=== PATIENT | female | born 1990 | race Caucasian/White ===

== ENCOUNTER → 2017-04-12 12:05 | Outpatient (CLI) | payer SELFPAY ==
[2017-04-12 12:27] LABS: Absolute Lymphocyte Count 1.24 X10^3/ul (0.83-4.51); Absolute Neutrophil Count 5.2 X10^3/uL (2.0-7.7); Basophil# 0.02 X10^3/uL; Basophil% 0.3 % (0-1); Eosinophil# 0.02 X10^3/uL; Eosinophils% 0.3 % (0-5); Hematocrit 38.4 % (37-47); Hemoglobin 13.1 g/dl (12.0-15.0); Lymphocyte # 1.24 X10^3/ul (4.0); Lymphocyte % 18.2 % (19-41); Mean Corp Hgb Conc 34.1 g/gl (32-36); Mean Corpuscular Hgb 28.9 pg (27.0-32.0); Mean Corpuscular Volume 84.6 fL (81-99); Mean Platelet Vol. 9.7 fl (6.2-12.0); Monocyte# 0.36 X10^3/uL; Monocyte% 5.3 % (0-10); Neutrophil # 5.17 X10^3/uL (2.7-7.7); Neutrophil % 75.8 % (47-70); Platelet Count 240 K/mm3 (150-450); RBC Distribution Width CV 13.8 % (11.6-14.6); RBC Distribution Width SD 41.9 fl (35.1-43.9); Red Blood Count 4.54 M/mm3 (4.2-5.4); White Blood Count 6.8 K/mm3 (4.4-11.0)
[2017-04-12 12:33] LABS: Color, Urine Yellow (Yellow); Glucose, Dipstick Normal (Normal); Ketone-Dipstick Negative (Negative); Leukocyte Esterase-Dipstick Negative /ul (Negative); Nitrite-Dipstick Negative (Negative); Occult Blood-Urine 25 /ul (Negative); Protein-Dipstick Negative (Negative); Urine Bilirubin Dipstick Negative (Negative); Urine Clarity Clear (Clear); Urine Urobilinogen Normal (Normal)
[2017-04-12 12:34] LABS: POSITIVE COUNT NO; POSITIVE DIFFERENTIAL NO; POSITIVE MORPHOLOGY NO
[2017-04-12 13:33] LABS: Thyroid Stim Hormone (TSH) 1.21 uIU/mL (0.358-3.74)
[2017-04-12 16:16] LABS: Chlamydia Trachomatis by PCR Negative (Negative); Neisserai gonorrhoeae by PCR Negative (Negative); Probe Check PASS; Sample Adequacy Control PASS; Specimen Processing Control PASS
[2017-04-13 03:49] LABS: Prenatal RPR NONREACTIVE (NONREACTIVE)
[2017-04-13 07:22] LABS: HEPATITIS B SURFACE AG Negative (Negative); Hep C Antibodies <0.1 s/co ratio (0.0-0.9)
[2017-04-13 12:16] LABS: HIV - WCH Non-Reactive (Nonreactive); Rubella IgG 0.3 IU/mL
[2017-04-18 07:25] LABS: HPV Reflexed? NOT INDICATED
== END ==
PROVIDERS: Visit Provider Obstetrics & Gynecology
DX: Z12.4 Encounter for screening for malignant neoplasm of cervix (principal); Z34.81 Encounter for supervision of other normal pregnancy, first trimester; Z3A.00 Weeks of gestation of pregnancy not specified
CPT/HCPCS: 81002; 84443; 85025; 86703; 86762; 86803; 87340; 87491; 87591; 88175; G0145

== ENCOUNTER → 2017-08-16 09:34 | Outpatient (CLI) | payer SELFPAY ==
[2017-08-16 12:19] LABS: Hematocrit 34.4 % (37-47); Hemoglobin 11.6 g/dl (12.0-15.0); Mean Corp Hgb Conc 33.7 g/gl (32-36); Mean Corpuscular Hgb 29.9 pg (27.0-32.0); Mean Corpuscular Volume 88.7 fL (81-99); Mean Platelet Vol. 10.1 fl (6.2-12.0); Platelet Count 212 K/mm3 (150-450); RBC Distribution Width CV 13.2 % (11.6-14.6); Red Blood Count 3.88 M/mm3 (4.2-5.4); White Blood Count 6.5 K/mm3 (4.4-11.0)
[2017-08-16 12:30] LABS: Glucose Challenge Gest 1H 50g 87 mg/dL (70-140)
[2017-08-16 12:31] LABS: Scan Indicated on CBC? Y/N NO
== END ==
PROVIDERS: Visit Provider Obstetrics & Gynecology
DX: Z34.83 Encounter for supervision of other normal pregnancy, third trimester (principal)
CPT/HCPCS: 36415; 82950; 85027

== ENCOUNTER → 2017-10-03 15:41 | Outpatient (CLI) | payer SELFPAY ==
[2017-10-03 18:39] LABS: Group B Strep DNA By PCR Negative (Negative); Internal Control PASS; Probe Check PASS; Specimen Processing Control PASS
== END ==
PROVIDERS: Visit Provider Obstetrics & Gynecology
DX: Z36.85 Encounter for antenatal screening for Streptococcus B (principal)
CPT/HCPCS: 87081; 87653

== ENCOUNTER 2017-10-27 14:55 | Inpatient (IN) | payer SELFPAY ==
[2017-10-27] MEDS: Lactated Ringers 1,000 ML 50 ML IV (16:00)
[2017-10-27 16:14] LABS: Hematocrit 34.2 % (37-47); Hemoglobin 11.2 g/dl (12.0-15.0); Mean Corp Hgb Conc 32.7 g/gl (32-36); Mean Corpuscular Hgb 28.1 pg (27.0-32.0); Mean Corpuscular Volume 85.9 fL (81-99); Mean Platelet Vol. 9.9 fl (6.2-12.0); Platelet Count 234 K/mm3 (150-450); RBC Distribution Width CV 13.9 % (11.6-14.6); RBC Distribution Width SD 43.3 fl (35.1-43.9); Red Blood Count 3.98 M/mm3 (4.2-5.4); White Blood Count 6.6 K/mm3 (4.4-11.0)
[2017-10-27 16:19] LABS: Scan Indicated on CBC? Y/N NO
[2017-10-27 16:24] VITALS: BMI 23.6
[2017-10-27] MEDS: 0.9% Saline Lock 10 ML Syringe IV (18:46)
[2017-10-27] MEDS: Ondansetron 4 MG/2 ML Vial IV (20:36)
[2017-10-27] MEDS: Oxytocin 10 UNITS/ML Vial IM ×2 (21:18)
--- NOTE | 2017-10-27 21:32 | PCM.OB.VAG ---
Vaginal Delivery Maternal Presentation: Elective Induction Method of Induction: Pitocin, Amniotomy Amniotic Membrane Rupture Type: Artificial Amniotic Fluid Description: Clear Final ERIKA: 10/30/17 Final ERIKA Source: US <20 weeks Gestational age: 39 Weeks and 4 Days Date of Procedure: 10/27/17 Pre-Operative Diagnosis: IUP Post-Operative Diagnosis: IUP Surgery/ Procedure Performed: Spontaneous Vaginal Delivery Type of Anesthesia: None Description of Procedure: Spontaneous vaginal delivery of a viable male with Apgars of 9/10 from an occiput anterior presentation with clear amniotic fluid and normal three-vessel placenta. First-degree midline episiotomy with no laceration repaired with 3-0 Rapide suture. Sponge counts okay. Delivery physician: Sam Clarke MD. Placental Delivery Description: Spontaneous Placenta Disposition: [facility] Cord Vessel Description: 3 Vessels Cord Entanglement: None Estimated Blood Loss: 250 cc A gender: Male (1 minute): 9 (5 minute): 10 Episiotomy Description: Midline, 1st degree Laceration: None Medications given after delivery: IV Pitocin Complications: None
--- NOTE | 2017-10-27 21:35 | PCM.DCVAG ---
Discharge Diet: No Restrictions Discharge Activity: May Shower, May Take a Tub Bath May resume sexual activity in: 4-6 weeks Additional Activity Instructions:: Nothing in the vagina for 4-6 weeks. You may return to work/school in 6 weeks. Call your doctor if you observe: Fever of 101 or Higher, Inability to urinate, Inability to have a bowel movement, Using more than one pad per hour Additional Instructions: If you experience any of the following, contact your healthcare provider. Bleeding that soaks a pad every hour for 2 hours Unrelieved incision or abdominal pain Swelling, redness, discharge or bleeding from your incision or episiotomy site Your incision begins to separate Problems urinating (including inability to urinate or burning while urinating). Visual changes Severe headache Flu-like symptoms Pain or redness in one of both of your breasts Pain, warmth, tenderness or swelling in your legs, especially the calf area Frequent nausea and vomiting Symptoms of depression or anxiety If you experience any of the following, call 911 or go to the nearest Emergency Room. Chest pain Problems breathing Seizure activity Partial or complete paralysis of a body part, slurred speech, weakness or drooping of the face, or a sudden inability to walk or hold your balance Allergies/Adverse Reactions: Allergies No Known Allergies Allergy (Verified 10/27/17 16:21) Medications to take at Discharge Vit Calc,Iron,Folic [ Vitamins] 1 each PO 10/27/17 Please Follow Up With: Sam Clarke MD - [phone] When: Call to make an appointment with your doctor in 6 weeks. Primary Care Physician: Care Physician,No Primary [Primary Care Provider] - Test Results: Test results from this visit will be discussed in further detail at your follow-up appointment, if applicable.
[2017-10-27] MEDS: Ibuprofen 600 MG Tablet PO (22:01)
[2017-10-27 23:41] VITALS: BP 109/55; PULSE 90; RESP 17; TEMP 37.1
[2017-10-28 04:00] VITALS: BP 104/47; PULSE 73; RESP 16; TEMP 37.2
[2017-10-28] MEDS: Ibuprofen 600 MG Tablet PO ×3 (05:10→19:46)
[2017-10-28 09:00] VITALS: BP 90/40; PULSE 80; RESP 18; TEMP 36.8
--- NOTE | 2017-10-28 11:03 | PCM.PN.OB ---
Subjective: Patient without complaints. Breast-feeding going well. Wants to stay another day. - Physical Exam Vital Signs Temp Pulse Resp BP 98.3 F 80 18 90/40 L 10/28/17 09:00 10/28/17 09:00 10/28/17 09:00 10/28/17 09:00 Weight: 133 lb 6.075 oz Body Mass Index (BMI) 23.6 Laboratory Tests Past 24 Hrs 10/27/17 10/27/17 15:55 15:55 WBC 6.6 RBC 3.98 L Hgb 11.2 L Hct 34.2 L MCV 85.9 MCH 28.1 MCHC 32.7 RDW 13.9 RDW Differential 43.3 Plt Count 234 MPV 9.9 Blood Type O POSITIVE Antibody Screen NEGATIVE Medical Necessity - Tobacco Use Smoking Status: Never smoker Assessment/Plan Doing well day #1. Continuing present care.
[2017-10-28 12:00] VITALS: BP 90/50; PULSE 70; RESP 18; TEMP 36.9
[2017-10-28] MEDS: Senna/Docusate Sodium 1 Tablet PO (12:32)
[2017-10-28 16:00] VITALS: BP 96/50; PULSE 66; RESP 16; TEMP 36.9
[2017-10-28 19:45] VITALS: BP 100/51; PULSE 74; RESP 16; TEMP 37.3
[2017-10-29 01:45] VITALS: BP 130/78; PULSE 67; RESP 16; TEMP 37
[2017-10-29] MEDS: Ibuprofen 600 MG Tablet PO ×2 (02:35→10:04)
--- NOTE | 2017-10-29 07:39 | PCM.PN.OB ---
Subjective: Patient without complaints. Breast-feeding going well. Ready to go home today. - Physical Exam Vital Signs Temp Pulse Resp BP 98.6 F 67 16 130/78 H 10/29/17 01:45 10/29/17 01:45 10/29/17 01:45 10/29/17 01:45 Oxygen Delivery Method Room Air Weight: 133 lb 6.075 oz Body Mass Index (BMI) 23.6 Medical Necessity - Tobacco Use Smoking Status: Never smoker Assessment/Plan Doing well day #2. Will release to home with routine instructions.
[2017-10-29 08:00] VITALS: BP 105/47; PULSE 74; RESP 16; TEMP 37.4; O2SAT 98
[2017-10-29 13:17] VITALS: BP 104/56; PULSE 74; RESP 18; TEMP 36.6; O2SAT 98
[2017-10-29 14:10] VITALS: BP 105/47; PULSE 74; RESP 16; TEMP 37.4; O2SAT 98
== END 2017-10-29 14:10 | disposition home or self-care (01) | DRG 775 ==
PROVIDERS: Admitting Provider Obstetrics & Gynecology; Visit Provider Obstetrics & Gynecology
DX: O80 Encounter for full-term uncomplicated delivery (principal); Z3A.39 39 weeks gestation of pregnancy; Z37.0 Single live birth
CPT/HCPCS: 59050; 85027; 86850; 86900; 99218; J7120; A4216; G0378; J2405

== ENCOUNTER 2022-02-08 14:10 | Inpatient (IN) | payer SELFPAY ==
[2022-02-08] MEDS: Methylergonovine 0.2 MG/ML Ampul IM (14:32)
[2022-02-08 14:38] VITALS: BMI 26.5
[2022-02-08 14:51] VITALS: BP 121/65; PULSE 65; TEMP 37.4; O2SAT 98
--- NOTE | 2022-02-08 14:54 | PCM.HP.BLA ---
History and Physical Date of Admission: 02/08/22 Chief complaint: Vaginal delivery History present illness: 31-year-old status post vaginal delivery and squad car at 39 weeks and 5 days with ERIKA 02/10/2022. Patient sees [facility], felt contractions noted to have pressure and vaginal delivered spontaneously. Denies headache, visual changes, chest pain, shortness of breath, nausea vomit, right upper quadrant pain. is complicated by no care/care with [place] Obstetric history: G1: at term G2: at term G3: SAB G4: at term G5: at term G6: Current, status post at term Past medical history: None Medications: None Past surgical history: Pilonidal cyst Allergies: No known drug allergies Social history: Denies smoking, alcohol use, drug use Family history: Denies history DVT or PE Review of systems: Besides above pertinent positives a full review of systems was performed and found to be negative Physical exam: Vitals: Blood pressure 121/65 pulse 65 temperature 98.4 SPO2 90% on room air General: Normal-appearing no acute distress HEENT: Normocephalic/atraumatic no cervical of adenopathy Cardiac/respiratory: No use of accessory muscles, nonlabored breathing Abdomen: Soft, nontender, uterus firm and below umbilicus Pelvic exam: No signs of lacerations Extremities: No peripheral edema normal peripheral pulses Psych: Normal affect normal demeanor nonpressured speech Bedside ultrasound: Thin endometrial lining Placenta evaluated and found to be intact, three-vessel cord Assessment plan: 31-year-old G6, P5 status post vaginal delivery at 39 weeks and squad car, typically sees [facility]. Baby and placenta delivered by squad car. Placenta appears to be delivered intact, bleeding well controlled, bedside ultrasound reassuring with endometrial stripe. We will continue to monitor vital signs. IM Methergine given on arrival. For CBC and type and screen. Will obtain records from [facility]. Per patient GBS negative, records pending. We will continue to monitor
[2022-02-08 15:06] VITALS: BP 116/68; PULSE 67
[2022-02-08 15:21] VITALS: BP 121/64; PULSE 61; TEMP 37.4; O2SAT 98
[2022-02-08 15:22] LABS: Absolute Lymphocyte Count 0.71 X10^3/uL (0.83-4.51); Absolute Neutrophil Count 7.7 X10^3/uL (2.0-7.7); Basophil# 0.03 X10^3/uL; Basophil% 0.3 % (0-1); Hematocrit 36.5 % (37-47); Hemoglobin 12.3 g/dL (12.0-15.0); Lymphocyte # 0.71 X10^3/ul (0.83-4.51); Lymphocyte % 7.9 % (19-41); Mean Corp Hgb Conc 33.7 g/dL (32-36); Mean Corpuscular Hgb 29.9 pg (27.0-32.0); Mean Corpuscular Volume 88.8 fL (81-99); Mean Platelet Vol. 9.9 fl (6.2-12.0); Monocyte# 0.56 X10^3/uL; Monocyte% 6.2 % (0-10); NRBC Flagged by Analyzer 0 % (0-5); Neutrophil # 7.67 X10^3/uL (2.7-7.7); Neutrophil % 85.2 % (47-70); Platelet Count 234 K/mm3 (150-450); RBC Distribution Width CV 13.8 % (11.6-14.6); RBC Distribution Width SD 45.2 fl (35.1-43.9); Red Blood Count 4.11 M/mm3 (4.2-5.4)
[2022-02-08 15:39] VITALS: BP 123/66; PULSE 67
[2022-02-08] MEDS: 0.9% Saline Lock 10 ML Syringe IV (15:41)
[2022-02-08] MEDS: Acetaminophen 500 MG Tablet 1000 MG PO (16:21)
[2022-02-08 20:00] VITALS: BP 107/50; PULSE 75; RESP 18; TEMP 36.4
[2022-02-08] MEDS: Ibuprofen 600 MG Tablet PO (21:39)
[2022-02-09 00:15] VITALS: BP 93/48; PULSE 71; RESP 18; TEMP 36.3
[2022-02-09] MEDS: Acetaminophen 500 MG Tablet 1000 MG PO (02:10)
--- NOTE | 2022-02-09 07:55 | DCINST_ITS ---
Discharge Instructions Diet Discharge Diet: No restrictions Activity Discharge Activity: Return to Normal Activity, May Drive and May Shower May resume sexual activity in: 4-6 weeks Weight Bearing Status: Weight bearing as tolerated Dressing / Incision Call your doctor if your incision/area has: Continuous Slow Oozing and Foul Smelling Discharge Call your doctor if you observe: Fever of 101 or Higher, Shortness of breath and Chest pain Follow Up Care Please Follow Up With: Carloz Bates MD When: 4 to 6 weeks Test Results: Test results from this visit will be discussed in further detail at your follow- up appointment, if applicable. Discharge Plan Admission Admit Date/Time: 02/08/22 14:10 Attending Provider: Carloz Bates Primary Care Provider: Sam Quintanilla Discharge Orders/Prescriptions Prescriptions: No Action Vitamin 1 EACH tablet 1 ea PO DAILY sertraline [Zoloft] 25 mg Tablet 25 mg PO DAILY Referrals / Follow Up: Sam Quintanilla MD [Primary Care Provider] - Disposition Discharge Orders: Discharge Patient (Routine); Ordered 02/09/22 Ordered By: Dr. Carloz Bates
--- NOTE | 2022-02-09 07:56 | PN.OBGYN_ITS ---
Subjective Subjective No overnight complaints Objective Data Objective Data Vital Signs: Vital Signs Temp Pulse Resp BP Pulse Ox 97.4 F L 71 18 93/48 L 98 02/09/22 00:15 02/09/22 00:15 02/09/22 00:15 02/09/22 00:15 02/08/22 15:21 Weight: 145 lb Body Mass Index (BMI) 26.5 Intake & Output: Intake and Output for Last 24 Hours 02/07/22 02/08/22 02/09/22 23:59 23:59 23:59 Output Total 400 / 400 Balance -400 / -400 Lab / Micro Data Result Diagrams: 02/08/22 15:00 Labs: Laboratory Results - last 24 hr 02/08/22 15:00: WBC 9.0, RBC 4.11 L, Hgb 12.3, Hct 36.5 L, MCV 88.8, MCH 29.9, MCHC 33.7, RDW Std Deviation 45.2 H, RDW Coeff of Jan 13.8, Plt Count 234, MPV 9.9, Immature Gran % (Auto) 0.400, Neut % (Auto) 85.2 H, Lymph % (Auto) 7.9 L, [place] % (Auto) 6.2, Eos % (Auto) 0.0, Baso % (Auto) 0.3, Absolute Neuts (auto) 7.7, Absolute Lymphs (auto) 0.71 L, Nucleated RBC % 0 02/08/22 15:00: Blood Type O POSITIVE, Antibody Screen NEGATIVE Physical Exam Const alert, oriented x3, no apparent distress, average body habitus, healthy appearing and well nourished HEENT normocephalic and moist oral mucous membranes Eyes PERRL Resp normal respiratory effort, no retractions and no use of accessory muscles GI GI Narrative: Soft, nontender, uterus firm and below umbilicus Extremity normal to inspection, full ROM and no clubbing, cyanosis or edema Neuro moves all extremities and no focal motor deficits Psych mental status grossly normal, affect normal, speech normal and activity/motor behavior normal Assessment & Plan (1) Vaginal delivery: PLAN: day 1 status post precipitous delivery in squad car. Breast- feeding. Pain well controlled. 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
[2022-02-09 08:01] VITALS: BP 106/47; PULSE 71; RESP 17; TEMP 36.1
[2022-02-09 12:58] VITALS: BP 100/61; PULSE 68; RESP 16; TEMP 36.2
== END 2022-02-09 15:52 | disposition home or self-care (01) | DRG 776 ==
PROVIDERS: Admitting Provider Obstetrics & Gynecology; PCP Family Medicine; Visit Provider Obstetrics & Gynecology
DX: Z39.0 Encounter for care and examination of mother immediately after delivery (principal)
CPT/HCPCS: 85025; 86850; 86900; 86901; A4216